=== PATIENT | male | born 1965 | race Caucasian/White ===

== ENCOUNTER 2018-12-17 11:05 | Observation (INO) | payer OTHER ==
[2018-12-17] MEDS ORDERED: ASPIRIN 81 MG CHEWABLE TABLETS PO ONE (11:19)
[2018-12-17 11:20] VITALS: BMI 33.0
--- NOTE | 2018-12-17 11:28 | PDOC ---
History of Present Illness - General Chief Complaint: Chest Pain Stated Complaint: CHEST PAIN Time Seen by Provider: 12/17/18 11:19 History Source: Patient Exam Limitations: No Limitations - History of Present Illness Initial Comments: 12/17/18 11:29 This is a 53-year-old male with a history of [id number] diabetes, hyperlipidemia who presents emergency department with a complaint of shortness of breath and chest pain. Patient states he traveled to [place] approximately one week ago, had no shortness of breath at that time. After returning from [facility], he noticed that he felt short of breath or had some difficulty with breathing. He noted intermittently that he was gasping for breath. Last night he noticed chest discomfort which she described as squeezing/sharp. He rates the pain as 3-4/10, no radiation to the jaw or back. Patient became concerned because his brother had a recent cardiac catheterization and was found to have an AL. He denies fevers, chills. He was seen in this emergency department in July 2018 for tachycardia, had not followed up with cardiology subsequent to that. PMH: Diabetes, hyperlipidemia Past surgical history: Left elbow surgery Medication: Metformin, simvastatin ALLERGIES: NO KNOWN DRUG ALLERGIES Social: Patient uses tobacco (states one pack will last 1 month), denies drug or alcohol use Pacing recently traveled to [facility] Family history: Brother recently had an AL, has diabetes ROS: GENERAL/CONSTITUTIONAL: No: fever, chills, weakness, loss of appetite. HEAD, EYES, EARS, NOSE AND THROAT: No: change in vision, ear pain, discharge, sore throat, throat swelling. CARDIOVASCULAR: Yes: chest pain No: lightheadedness, palpitations, syncope RESPIRATORY: Yes: SOB No: cough,wheezing, hemoptysis, stridor. GASTROINTESTINAL: No: nausea, vomiting, diarrhea, abdominal cramping, rectal bleeding, constipation. GENITOURINARY: No: dysuria, hematuria, frequency, urgency, flank pain. MUSCULOSKELETAL: No: back pain, neck pain, joint pain, muscle swelling or pain SKIN AND BREASTS: No: lesions, pallor, rash or easy bruising. NEUROLOGIC: No: headache, vertigo, paresthesias, weakness ENDOCRINE: No: unexplained weight gain or loss HEMATOLOGIC/LYMPHATIC: No: anemia, easy bleeding, swelling nodes. PE: GENERAL: The patient is in no acute distress. HEAD: Normal with no signs of trauma. EYES: PERRLA, EOMI, sclera anicteric, conjunctiva clear. ENT: Ears normal, nares patent, oropharynx clear without exudates. Moist mucous membranes. NECK: Normal range of motion, supple without JVD LUNGS: Breath sounds equal, clear to auscultation bilaterally. No wheezes, and no crackles. HEART:Regular rate and rhythm, normal S1 and S2 without murmur, rub or gallop. ABDOMEN: Soft, nontender, normoactive bowel sounds. No guarding, no rebound. No masses palpable. EXTREMITIES: Normal range of motion, no edema. NEUROLOGICAL: Cranial nerves II through XII grossly intact. Normal speech. No focal neurological deficits. MUSCULOSKELETAL: Back non-tender to palpation, no CVA tenderness SKIN: Warm, Dry, normal turgor, no rashes or lesions noted. Past History - Past Medical History Allergies/Adverse Reactions: Allergies Allergy/AdvReac Type Severity Reaction Status Date / Time No Known Allergies Allergy Verified 12/17/18 11:20 Home Medications: Ambulatory Orders Metformin HCl [Glucophage] 500 mg PO DAILY 12/17/18 *Physical Exam - Vital Signs Last Vital Signs Temp Pulse Resp BP Pulse Ox 98 F 94 H 18 117/79 100 12/17/18 11:18 12/17/18 11:18 12/17/18 11:18 12/17/18 11:18 12/17/18 12:00 Heart Score/ECG Review - History History: Moderately suspicious - Electrocardiogram EKG: Normal - Age Age: 45-65 - Risk Factors Risk Factors Heart Score: Yes Hx Hypercholesterolemia, Yes Hx Diabetes, Yes Smoking History, Yes Positive family hx of cardiac disease Based on the list above the patient has:: >/=3 risk factors or Hx atherosclerotic disease - Troponin Troponin: </= normal limit - Score Heart Score - Total: 4 ED Treatment Course - LABORATORY CBC & Chemistry Diagram: 12/17/18 11:32 12/17/18 11:32 - ADDITIONAL ORDERS Additional order review: Laboratory Results 12/17/18 12/17/18 12/17/18 11:32 11:32 11:32 PT with INR 11.70 INR 0.99 PTT (Actin FS) 31.5 D-Dimer 609 H Sodium 138 Potassium 4.2 Chloride 107 Carbon Dioxide 24 Anion Gap 7 L BUN 14 Creatinine 0.9 Creat Clearance w eGFR 88.96 Random Glucose 105 Calcium 8.9 Magnesium 2.5 H Total Bilirubin 0.9 AST 29 ALT 78 H Alkaline Phosphatase 63 Creatine Kinase 143 Troponin I < 0.02 B-Natriuretic Peptide 9.9 Total Protein 7.3 Albumin 3.8 12/17/18 11:32 RBC 5.04 MCV 86.1 MCHC 33.9 RDW 12.9 MPV 7.0 L Neutrophils % 57.8 Lymphocytes % 30.2 Monocytes % 7.1 Eosinophils % 3.6 Basophils % 1.3 - RADIOLOGY Radiology Studies Ordered: Category Date Time Status CHEST CTA [CT] Stat CT Scan 12/17/18 14:05 Completed CHEST X-RAY PORTABLE* [RAD] Stat Radiology 12/17/18 11:20 Completed - Medications Given in the ED: ED Medications Discontinued Medications Generic Name Dose Route Start Last Admin Trade Name Freq PRN Reason Stop Dose Admin Aspirin 162 mg 12/17/18 11:19 12/17/18 12:12 Asa - PO 12/17/18 11:20 162 mg ONCE ONE Administration Medical Decision Making - Medical Decision Making 12/17/18 11:32 Differential includes cardiac ischemia, pe, asthma exacerbation, pneumonia, pneumothorax, pleural effusion, costochondritis, pericarditis, GERD. Will do: Labs EKG CXR CTA ASA Admit EKG: NSR rate of 83 bpm, axis nml, intervals nml, j point elevation v2 - v6 12/17/18 12:23 Laboratory Tests 12/17/18 12/17/18 12/17/18 11:32 11:32 11:32 WBC 7.5 Hgb 14.7 Hct 43.3 Plt Count 265 INR 0.99 Sodium 138 Potassium 4.2 Chloride 107 Carbon Dioxide 24 BUN 14 Creatinine 0.9 Creatine Kinase 143 Troponin I < 0.02 12/17/18 12:41 Laboratory Tests 12/17/18 11:32 D-Dimer 609 H CTA ordered 12/17/18 17:02 CTA negative for PW Admitted to hospitalist service *DC/Admit/Observation/Transfer Diagnosis at time of Disposition: Chest pain Qualifiers: Chest pain type: unspecified Qualified Code(s): R07.9 - Chest pain, unspecified - Discharge Dispostion Condition at time of disposition: Stable Decision to Admit order: Yes - Referrals - Patient Instructions - Post Discharge Activity
[2018-12-17 11:47] LABS: BASO % 1.3 % (0-2.0); EOS % 3.6 % (0-4.5); HEMATOCRIT 43.3 % (35.4-49); HEMOGLOBIN 14.7 GM/dL (11.7-16.9); LYMPH % 30.2 % (8-40); MCH 29.1 pg (25.7-33.7); MCHC 33.9 g/dl (32.0-35.9); MEAN CELL VOLUME 86.1 fl (80-96); MONO % 7.1 % (3.8-10.2); NEUT % 57.8 % (42.8-82.8); PLATELET COUNT 265 K/MM3 (134-434); RBC 5.04 M/mm3 (4.00-5.60); RDW 12.9 % (11.9-15.9); WHITE BLOOD COUNT 7.5 K/mm3 (4.0-10.0)
[2018-12-17] MEDS ORDERED: ASPIRIN 81 MG CHEWABLE TABLETS ONE (12:15)
[2018-12-17 12:18] LABS: INR 0.99 (0.83-1.09); PROTHROMBIN TIME (PATIENT) 11.7 SEC (9.7-13.0)
[2018-12-17 12:20] LABS: ALBUMIN 3.8 g/dl (3.4-5.0); ALK PHOS 63 U/L (45-117); ANION GAP 7 MMOL/L (8-16); BILIRUBIN,TOTAL 0.9 mg/dL (0.2-1); BLOOD UREA NITROGEN 14 mg/dL (7-18); CALCIUM 8.9 mg/dL (8.5-10.1); CHLORIDE 107 mmol/L (98-107); CO2 24 mmol/L (21-32); CREATININE 0.9 mg/dL (0.55-1.3); GLUCOSE,RANDOM 105 mg/dL (74-106); MAGNESIUM 2.5 mg/dL (1.8-2.4); N-TERMINAL BNP 9.9 pg/ml (5-125); POTASSIUM 4.2 mmol/L (3.5-5.1); SGOT/AST 29 U/L (15-37); SGPT/ALT 78 U/L (13-61); SODIUM 138 mmol/L (136-145); TOT PROT 7.3 g/dl (6.4-8.2)
[2018-12-17 12:21] LABS: ACTIVATED PTT 31.5 SECONDS (25.2-36.5)
--- NOTE | 2018-12-17 15:40 | PN ---
Progress Note, Physician Chief Complaint: chest pain History of Present Illness: this is a 53 y/o male w HDL, NIDDM, and HTN presented with atypical chest pain that has been going on and off for the past few days, according to the patient he has been having this for more than a week, and it was worsened when the patient had travelled to [facility], where he was not taking his medication and was eating bad food. ROS is negative besides what was presented. - Objective Vital Signs: Vital Signs Temperature 98 F 12/17/18 11:18 Pulse Rate 94 H 12/17/18 11:18 Respiratory Rate 18 12/17/18 11:18 Blood Pressure 117/79 12/17/18 11:18 O2 Sat by Pulse Oximetry (%) 100 12/17/18 12:00 Constitutional: Yes: Well Nourished, No Distress, Calm Eyes: Yes: WNL, Conjunctiva Clear, EOM Intact HENT: Yes: WNL, Atraumatic, Normocephalic Neck: Yes: WNL, Supple, Trachea Midline Cardiovascular: Yes: WNL, Regular Rate and Rhythm, S1, S2 Respiratory: Yes: WNL, Regular, CTA Bilaterally Gastrointestinal: Yes: WNL, Normal Bowel Sounds, Soft Musculoskeletal: Yes: WNL Extremities: Yes: WNL Integumentary: Yes: WNL Neurological: Yes: WNL, Alert, Oriented ...Motor Strength: WNL Psychiatric: Yes: WNL, Alert, Oriented Labs: CBC, BMP 12/17/18 11:32 12/17/18 11:32 INR, PTT INR 0.99 (0.83-1.09) 12/17/18 11:32 Problem List - Problems (1) HTN (hypertension), benign Assessment/Plan: metoprolol succinate xl 25mg daily Code(s): I10 - ESSENTIAL (PRIMARY) HYPERTENSION (2) Dyslipidemia (high LDL; low HDL) Assessment/Plan: obtain LDL start atorvastatin 40mg daily Code(s): E78.5 - HYPERLIPIDEMIA, UNSPECIFIED (3) Non-insulin dependent type 2 diabetes mellitus Assessment/Plan: BGM insulin sliding scale hold metformin Code(s): E11.9 - TYPE 2 DIABETES MELLITUS WITHOUT COMPLICATIONS (4) Chest pain Assessment/Plan: r/o ACS aspirin 81mg daily start the patient on atorvastatin 40mg cardiology consult trend ECG trend troponin admit to tele monitor Code(s): R07.9 - CHEST PAIN, UNSPECIFIED Qualifiers: Chest pain type: unspecified Qualified Code(s): R07.9 - Chest pain, unspecified
[2018-12-17 17:26] LABS: CHOLESTEROL 222 mg/dL (50-200); HDL CHOLESTEROL 40 mg/dL (40-60); TRIGLYCERIDES 265 mg/dL (0-150)
[2018-12-17] MEDS: INSULIN SLIDING SCALE (NOVOLOG) 1 VIAL SQ SCH (19:07)
[2018-12-18] MEDS ORDERED: ROSUVASTATIN CA 40 MG TABLET PO ONE (07:58)
[2018-12-18 08:11] LABS: BASO % 0.7 % (0-2.0); EOS % 4.1 % (0-4.5); HEMATOCRIT 43.5 % (35.4-49); HEMOGLOBIN 14.2 GM/dL (11.7-16.9); LYMPH % 35.2 % (8-40); MCH 28.4 pg (25.7-33.7); MCHC 32.8 g/dl (32.0-35.9); MEAN CELL VOLUME 86.7 fl (80-96); MONO % 6.3 % (3.8-10.2); NEUT % 53.7 % (42.8-82.8); PLATELET COUNT 252 K/MM3 (134-434); RBC 5.02 M/mm3 (4.00-5.60); RDW 12.8 % (11.9-15.9); WHITE BLOOD COUNT 7.3 K/mm3 (4.0-10.0)
[2018-12-18] MEDS: INSULIN SLIDING SCALE (NOVOLOG) 1 VIAL SQ SCH ×2 (08:27→12:07)
[2018-12-18 08:40] LABS: ALBUMIN 3.6 g/dl (3.4-5.0); ALK PHOS 69 U/L (45-117); ANION GAP 7 MMOL/L (8-16); BILIRUBIN,TOTAL 0.7 mg/dL (0.2-1); BLOOD UREA NITROGEN 17 mg/dL (7-18); CALCIUM 8.4 mg/dL (8.5-10.1); CHLORIDE 106 mmol/L (98-107); CO2 26 mmol/L (21-32); CREATININE 0.9 mg/dL (0.55-1.3); GLUCOSE,RANDOM 100 mg/dL (74-106); MAGNESIUM 2.2 mg/dL (1.8-2.4); N-TERMINAL BNP 5.9 pg/ml (5-125); PHOSPHOROUS 3.9 mg/dL (2.5-4.9); POTASSIUM 4.3 mmol/L (3.5-5.1); SGOT/AST 25 U/L (15-37); SGPT/ALT 66 U/L (13-61); SODIUM 139 mmol/L (136-145); TOT PROT 6.8 g/dl (6.4-8.2)
--- NOTE | 2018-12-18 09:28 | HP ---
Admitting History and Physical - Admission Chief Complaint: chest pain History of Present Illness: this is a 53 y/o male w HDL, NIDDM, and HTN presented with atypical chest pain that has been going on and off for the past few days, according to the patient he has been having this for more than a week, and it was worsened when the patient had travelled to [facility], where he was not taking his medication and was eating bad food. ROS is negative besides what was presented. History Source: Family Member - Smoking History Smoking history: Never smoked Home Medications - Allergies Allergies/Adverse Reactions: Allergies Allergy/AdvReac Type Severity Reaction Status Date / Time No Known Allergies Allergy Verified 12/17/18 11:20 - Home Medications Home Medications: Ambulatory Orders Metformin HCl [Glucophage] 500 mg PO DAILY 12/17/18 Review of Systems - Review of Systems Constitutional: reports: No Symptoms Eyes: reports: No Symptoms HENT: reports: No Symptoms Neck: reports: No Symptoms Cardiovascular: reports: Chest Pain, Palpitations, Shortness of Breath Respiratory: reports: No Symptoms, Exercise Intolerance, SOB, SOB on Exertion Gastrointestinal: reports: No Symptoms Genitourinary: reports: No Symptoms Musculoskeletal: reports: No Symptoms Integumentary: reports: No Symptoms Physical Examination Vital Signs: Vital Signs Temperature 97.7 F 12/18/18 07:49 Pulse Rate 86 12/18/18 07:49 Respiratory Rate 17 12/18/18 07:49 Blood Pressure 117/70 12/18/18 07:49 O2 Sat by Pulse Oximetry (%) 97 12/18/18 07:49 Constitutional: Yes: Well Nourished, No Distress, Calm Eyes: Yes: WNL, Conjunctiva Clear, EOM Intact HENT: Yes: WNL, Atraumatic, Normocephalic Neck: Yes: WNL, Supple, Trachea Midline Cardiovascular: Yes: WNL, Regular Rate and Rhythm, S1, S2 Respiratory: Yes: WNL, Regular, CTA Bilaterally Gastrointestinal: Yes: WNL, Normal Bowel Sounds, Soft Musculoskeletal: Yes: WNL Extremities: Yes: WNL Edema: No Peripheral Pulses WNL: Yes Integumentary: Yes: WNL Neurological: Yes: WNL, Alert, Oriented Labs: CBC, BMP 12/18/18 07:00 12/18/18 07:00 Imaging - Results Chest X-ray: Image Reviewed EKG: Image Reviewed Problem List - Problems (1) HTN (hypertension), benign Assessment/Plan: metoprolol succinate xl 25mg daily Code(s): I10 - ESSENTIAL (PRIMARY) HYPERTENSION (2) Dyslipidemia (high LDL; low HDL) Assessment/Plan: obtain LDL start atorvastatin 40mg daily Code(s): E78.5 - HYPERLIPIDEMIA, UNSPECIFIED (3) Non-insulin dependent type 2 diabetes mellitus Assessment/Plan: BGM insulin sliding scale hold metformin Code(s): E11.9 - TYPE 2 DIABETES MELLITUS WITHOUT COMPLICATIONS (4) Chest pain Assessment/Plan: r/o ACS aspirin 81mg daily start the patient on atorvastatin 40mg cardiology consult trend ECG trend troponin admit to tele monitor Code(s): R07.9 - CHEST PAIN, UNSPECIFIED Qualifiers: Chest pain type: unspecified Qualified Code(s): R07.9 - Chest pain, unspecified Assessment/Plan (1) HTN (hypertension), benign Assessment/Plan: metoprolol succinate xl 25mg daily Code(s): I10 - ESSENTIAL (PRIMARY) HYPERTENSION (2) Dyslipidemia (high LDL; low HDL) Assessment/Plan: obtain LDL start atorvastatin 40mg daily Code(s): E78.5 - HYPERLIPIDEMIA, UNSPECIFIED (3) Non-insulin dependent type 2 diabetes mellitus Assessment/Plan: BGM insulin sliding scale hold metformin Code(s): E11.9 - TYPE 2 DIABETES MELLITUS WITHOUT COMPLICATIONS (4) Chest pain Assessment/Plan: r/o ACS aspirin 81mg daily start the patient on atorvastatin 40mg cardiology consult trend ECG trend troponin admit to tele monitor Code(s): R07.9 - CHEST PAIN, UNSPECIFIED
[2018-12-18 09:32] VITALS: TEMP 98.9
--- NOTE | 2018-12-18 09:32 | PN ---
Progress Note, Physician Chief Complaint: chest pain History of Present Illness: this is a 53 y/o male w HDL, NIDDM, and HTN presented with atypical chest pain that has been going on and off for the past few days, according to the patient he has been having this for more than a week, and it was worsened when the patient had travelled to [facility], where he was not taking his medication and was eating bad food. ROS is negative besides what was presented. - Current Medication List Current Medications: Active Medications Enoxaparin Sodium (Lovenox -) 40 mg SQ DAILY [facility] Last Admin: 12/18/18 09:28 Dose: Not Given Insulin Aspart (Novolog Vial Sliding Scale -) 1 vial SQ TIDAC [facility]; Protocol Last Admin: 12/18/18 08:27 Dose: Not Given - Objective Vital Signs: Vital Signs Temperature 97.7 F 12/18/18 07:49 Pulse Rate 86 12/18/18 07:49 Respiratory Rate 17 12/18/18 07:49 Blood Pressure 117/70 12/18/18 07:49 O2 Sat by Pulse Oximetry (%) 97 12/18/18 07:49 Constitutional: Yes: Well Nourished, No Distress, Calm Eyes: Yes: WNL, Conjunctiva Clear, EOM Intact HENT: Yes: WNL, Atraumatic, Normocephalic Neck: Yes: WNL, Supple, Trachea Midline Cardiovascular: Yes: WNL, Regular Rate and Rhythm Respiratory: Yes: WNL, Regular, CTA Bilaterally Gastrointestinal: Yes: WNL, Normal Bowel Sounds, Soft Musculoskeletal: Yes: WNL Extremities: Yes: WNL Labs: CBC, BMP 12/18/18 07:00 12/18/18 07:00 INR, PTT INR 0.99 (0.83-1.09) 12/17/18 11:32 Problem List - Problems (1) HTN (hypertension), benign Assessment/Plan: metoprolol succinate xl 25mg daily Code(s): I10 - ESSENTIAL (PRIMARY) HYPERTENSION (2) Dyslipidemia (high LDL; low HDL) Assessment/Plan: obtain LDL start atorvastatin 40mg daily Code(s): E78.5 - HYPERLIPIDEMIA, UNSPECIFIED (3) Non-insulin dependent type 2 diabetes mellitus Assessment/Plan: BGM insulin sliding scale hold metformin Code(s): E11.9 - TYPE 2 DIABETES MELLITUS WITHOUT COMPLICATIONS (4) Chest pain Assessment/Plan: r/o ACS aspirin 81mg daily start the patient on atorvastatin 40mg cardiology consult tropnin negative admit to tele monitor Code(s): R07.9 - CHEST PAIN, UNSPECIFIED Qualifiers: Chest pain type: unspecified Qualified Code(s): R07.9 - Chest pain, unspecified
[2018-12-18] MEDS ORDERED: ENOXAPARIN NA (PORCINE) 40 MG/0.4 ML DISP.SYRIN SQ SCH (10:00)
--- NOTE | 2018-12-18 10:04 | CON.CARD ---
Consult Consult Specialty:: Cardiology Referred by:: Medicine Reason for Consultation:: chest pain - History of Present Illness Chief Complaint: chest pain History of Present Illness: 53M h/o HLD, DM, HTN p/w chest pain for a few days. Worse after travel to [facility] , not taking meds as directed and eating poorly. Concerned as brother has hx CAD, notes that his primary complaint is palpitations that he gets intermittently and feels fast heart beat, needs to take a deep breath. Currently no chest pain, palps, dizziness, dyspnea - Smoking History Smoking history: Never smoked Home Medications - Allergies Allergies/Adverse Reactions: Allergies Allergy/AdvReac Type Severity Reaction Status Date / Time No Known Allergies Allergy Verified 12/17/18 11:20 - Home Medications Home Medications: Ambulatory Orders Metformin HCl [Glucophage] 500 mg PO DAILY 12/17/18 Family Disease History - Family Disease History Family Disease History: Heart Disease: Brother Review of Systems - Review of Systems Constitutional: reports: No Symptoms Eyes: reports: No Symptoms HENT: reports: No Symptoms Neck: reports: No Symptoms Cardiovascular: reports: No Symptoms Respiratory: reports: No Symptoms Gastrointestinal: reports: No Symptoms Genitourinary: reports: No Symptoms Musculoskeletal: reports: No Symptoms Integumentary: reports: No Symptoms Neurological: reports: No Symptoms Endocrine: reports: No Symptoms Hematology/Lymphatic: reports: No Symptoms Psychiatric: reports: No Symptoms Vital Signs: Vital Signs Temperature 98.9 F 12/18/18 09:32 Pulse Rate 87 12/18/18 09:32 Respiratory Rate 18 12/18/18 09:32 Blood Pressure 140/87 12/18/18 09:32 O2 Sat by Pulse Oximetry (%) 99 12/18/18 09:32 Constitutional: Yes: Well Nourished, No Distress, Calm Eyes: Yes: Conjunctiva Clear, EOM Intact HENT: Yes: Atraumatic, Normocephalic Neck: Yes: Supple, Trachea Midline Respiratory: Yes: Regular, CTA Bilaterally Gastrointestinal: Yes: Normal Bowel Sounds, Soft Cardiovascular: Yes: Regular Rate and Rhythm JVD: No Carotid Bruit: No PMI: Non-Displaced Heart Sounds: Yes: S1, S2 Musculoskeletal: No: Back Pain Extremities: No: Cold Edema: No Peripheral Pulses WNL: Yes Peripheral Pulses: 2+ Left Doralis Pedis, 2+ Right Dorsalis Pedis Neurological: Yes: Alert, Oriented Psychiatric: No: Agitated - Other Data Labs, Other Data: CBC, BMP 12/18/18 07:00 12/18/18 07:00 INR, PTT INR 0.99 (0.83-1.09) 12/17/18 11:32 Troponin, BNP 12/17/18 12/17/18 12/18/18 11:32 16:30 07:00 Troponin I < 0.02 < 0.02 B-Natriuretic Peptide 9.9 5.9 Troponin, BNP 12/17/18 12/17/18 12/18/18 11:32 16:30 07:00 Troponin I < 0.02 < 0.02 B-Natriuretic Peptide 9.9 5.9 Assessment/Plan EKG: sinus, nl intervals, no ischemic changes CXR: no acute process CTA chest: no PE tele: sinus 53M h/o HLD, DM, HTN p/w chest pain for a few days chest pain - trop neg x 2, EKG no ischemic changes - unlikely ACS - no further cardiac testing as inpatient, advised to follow up as outpatient for testing HTN - stable, not on meds - per patient recently was dc'ed HLD: - prior intolerance to statin, felt tired, thinks it as atorvastatin or simvastatin - start rosuvastatin 20 mg daily DM - manage per primary
[2018-12-18 12:57] VITALS: BP 132/87; PULSE 79
[2018-12-18] MEDS ORDERED: ROSUVASTATIN CA 20 MG TABLET (FP) PO SCH (22:00)
--- NOTE | 2018-12-19 10:17 | EKG ---
Test Reason : Blood Pressure : / mmHG Vent. Rate : 094 BPM Atrial Rate : 094 BPM P-R Int : 144 ms QRS Dur : 090 ms QT Int : 358 ms P-R-T Axes : 049 015 041 degrees QTc Int : 447 ms NORMAL SINUS RHYTHM NORMAL ECG WHEN COMPARED WITH ECG OF 17-DEC-2018 11:03, NO SIGNIFICANT CHANGE WAS FOUND Confirmed by RUTH THORPE MD ([id number]) on 12/19/2018 10:17:32 AM Referred By: Confirmed By:RUTH THORPE MD
--- NOTE | 2018-12-19 10:22 | EKG ---
Test Reason : Blood Pressure : / mmHG Vent. Rate : 083 BPM Atrial Rate : 083 BPM P-R Int : 124 ms QRS Dur : 100 ms QT Int : 386 ms P-R-T Axes : 022 000 026 degrees QTc Int : 453 ms NORMAL SINUS RHYTHM NORMAL ECG NO PREVIOUS ECGS AVAILABLE Confirmed by RUTH THORPE MD ([id number]) on 12/19/2018 10:22:16 AM Referred By: Confirmed By:RUTH THORPE MD
== END 2018-12-18 13:30 | disposition home or self-care (01) ==
LOC: JER 11:05 → JERBED 15:34
PROVIDERS: ADMIT Internal Medicine; ATTEND Internal Medicine
DX: R07.9 Chest pain, unspecified (principal); I10 Essential (primary) hypertension; E78.5 Hyperlipidemia, unspecified; E11.9 Type 2 diabetes mellitus without complications; Z79.84 Long term (current) use of oral hypoglycemic drugs
CPT/HCPCS: 36415; 71045-TC-FY; 71275-TC; 80053; 80061; 82550; 82962; 83721; 83735; 83880; 84100; 84443; 84484; 85025; 85379; 85610; 85730; 93005; 93010; 99285-25; G0378

== ENCOUNTER 2021-07-10 05:10 | Day surgery (SDC) | payer OTHER ==
[2021-07-09 09:38] VITALS: BMI 33.6
[2021-07-10 10:14] VITALS: TEMP 98
[2021-07-10 10:42] VITALS: BP 111/76; PULSE 77
== END 2021-07-10 10:55 | disposition home or self-care (01) ==
LOC: JASU-ENDO 05:10
PROVIDERS: ATTEND Internal Medicine Gastroenterology
PROC: 0DJD8ZZ Inspection of Lower Intestinal Tract, Via Natural or Artificial Opening Endoscopic (ICD-10-PCS; principal; 2021-07-10 09:00)
DX: Z12.11 Encounter for screening for malignant neoplasm of colon (principal); K64.8 Other hemorrhoids; I10 Essential (primary) hypertension
CPT/HCPCS: 82962

== ENCOUNTER 2021-09-28 14:18 | Emergency (ER) | payer OTHER ==
[2021-09-28 14:40] VITALS: BP 120/74; PULSE 106; TEMP 100.5; BMI 30.9
== END 2021-09-28 17:20 | disposition home or self-care (01) ==
LOC: JER 14:18
DX: R05.9 Cough, unspecified (principal)
CPT/HCPCS: 71046-TC-FY; 87804; 99284-25; C9803-CS; U0003; U0005